=== PATIENT | male | born 1980 | race Caucasian/White ===

== ENCOUNTER 2016-09-24 05:57 | Day surgery (SDC) | payer MEDICARE ==
[2016-09-24] VITALS (11 sets, daily range): BP systolic 117–134; BP diastolic 60–85; PULSE 60–90; RESP 11–16; O2SAT 88–95
[~2016-09-24] VITALS: Ht 200.7 cm; Wt 129.0 kg
[~2016-09-24 05:57] MED LIST: KLO5T PO; LAMO100T PO; Lactated Ringer's 1,000 ML IV SCH; METO-274 PO; OMEP40CA36 PO; PARO40TA3 PO; PROP150T PO; RIVA20TA PO
[2016-09-24] MEDS ORDERED: Ondansetron 2 mg/mL 2 mL Inj ONE (05:58)
[2016-09-24] MEDS ORDERED: MetoCLOpramide 5 mg/mL 2 mL Inj ONE (05:58)
[2016-09-24] MEDS ORDERED: Protamine Sulfate 10 mg/mL 5 mL Inj ONE ×3 (05:58→16:01)
[2016-09-24] MEDS ORDERED: fentaNYL-PF 50 mCg/mL 2 mL Inj ONE ×2 (05:58→15:16)
[2016-09-24] MEDS ORDERED: Neostigmine 1 mg/mL 10 mL Inj ONE (05:58)
[2016-09-24] MEDS ORDERED: Propofol 10,000 mCg/mL 20 mL Inj ONE (05:58)
[2016-09-24] MEDS ORDERED: Rocuronium 10 mg/mL 5 mL Inj ONE (05:58)
[2016-09-24] MEDS ORDERED: Dexamethasone 4 mg/mL Inj ONE (05:58)
[2016-09-24] MEDS ORDERED: Vasopressin 20 Unit/mL Inj ONE (05:58)
[2016-09-24] MEDS ORDERED: Phenylephrine/NS 100 mCg/mL 10 mL Syringe IVPUSH ONE (05:58)
[2016-09-24] MEDS ORDERED: EPHEDrine/NS 5 mg/mL 5 mL Syringe ONE (05:58)
[2016-09-24] MEDS ORDERED: Succinylcholine Chloride 20 mg/mL 5 mL Inj ONE (05:58)
[2016-09-24] MEDS ORDERED: Heparin 1,000 Unit/mL 10 mL Inj ONE ×4 (10:44→15:17)
[2016-09-24] MEDS ORDERED: 0.9% Sodium Chloride 3,000 ML ONE (10:44)
[2016-09-24] MEDS ORDERED: 0.9% Sodium Chloride 1,500 ML ONE (10:44)
[2016-09-24] MEDS ORDERED: Heparin 25,000 Unit/500 mL 0.45% NS Premix IV ONE (10:45)
[2016-09-24 11:02] LABS: BASOPHILS % (AUTO) 0.6 % (0-3); EOSINOPHILS % (AUTO) 2.7 % (0-5); MONOCYTES % (AUTO) 9.3 % (4-12); Mean Corpuscular Hemoglobin 29.3 pg (27.0-35.0); Mean Corpuscular Volume 87.5 fL (81-100); NEUTROPHILS % (AUTO) 64.6 % (40-74); Platelet Count 311 bil/L (150-400)
[2016-09-24] MEDS ORDERED: WARF5TAB7 PO (11:06)
[2016-09-24 11:14] LABS: INR 1.37 ratio
--- NOTE | 2016-09-24 11:43 | PCM.HPANE ---
Patient Data Date of Service: Sep 24, 2016 Surgeon Admitting Provider: Attending Provider:Addi James MD Primary Care Physician:Other,Physician Other Provider:Agusto Andres Anesthesia Reason for Visit Paroxysmal Afib Ht/WT & BMI Height (Feet): 6 Height (Inches): 7.00 Weight (Kilograms): 129.000 Body Mass Index 31.93 Allergies Coded Allergies: No Known Allergies (Unverified , 03/02/16) Past Anesthesia History Anesthesia History: Denies:: Anesthesia Reactions Diabetes History Hx Diabetes?: No MRSA MRSA: No Medications Home Meds Incl Beta Kannan: Yes Date Beta Kannan Taken: Sep 24, 2016 Previous Beta Kannan Dose >24: Previous Dose <24 Hours Reported Medications Warfarin Sodium 5 Mg Tablet5 Mg PO Castaneda,Mo,,Th,Sa 30 Days Ref 0 7.5mg ,Fr 09/24/16 Propafenone 150 Mg Glfnwq013 Mg PO Q12H 09/23/16 Omeprazole 40 Mg Capsule.dr40 Mg PO DAILY Ref 0 09/23/16 Metoprolol Succinate ER 100 Mg Tab.er.[id number] Mg PO DAILY Ref 0 09/23/16 Lamotrigine (Lamictal)100 Mg Jwhbnf443 Mg PO DAILY #30 TABLET Ref 0 09/23/16 Clonazepam 0.5 Mg Tablet0.5 Mg PO DAILY PRN For Anxiety Ref 0 09/23/16 Paroxetine 40 Mg Fowqwf81 Mg PO DAILY 02/22/16 Discontinued Reported Medications Rivaroxaban (Xarelto)20 Mg Gajsfz29 Mg PO DAILY 02/22/16 Aspirin 81 Mg Kfegcf61 Mg PO DAILY 02/22/16 Omeprazole 20 Mg Capsule.dr20 Mg PO DAILY PRN For Dyspepsia or Heartburn 02/22/16 Metoprolol Tartrate 25 Mg Khtfwu17 Mg PO DAILY 02/22/16 History History of ENT Problems?: No HEENT History: Denies:: TMJ Hx of Heart Problems?: Yes Cardiovascular History: Positive for:: Chest Pain (none currently) Irregular Heartbeat (A.fib, a.flutter, ablation) Denies:: Cardiac Surgery Congestive Heart Failure Edema Heart Murmur Pacemaker Thrombophlebitis Hx of Respiratory Problem?: Yes Respiratory History: Positive for:: Dyspnea (R/T Afib/flutter) Denies:: Asthma COPD Chest Surgery Emphysema Hemoptysis Pneumonia Tuberculosis Hx Neurologic Problems?: No Neurological History: Denies:: CVA Multiple Sclerosis Peripheral Neuropathy Seizures Hx of GI Problems?: Yes Gastrointestinal History: Positive for:: Gastroesphageal Reflux Heartburn Denies:: Diverticulitis Gastrointestinal Bleeding Hepatitis Hiatal Hernia Rectal Bleeding Hx of Problems?: No Male Hx: Denies:: Prostate Problems Scrotal Mass Testicular Surgery Hx Musculoskeletal Problems?: No Musculoskeletal History: Denies:: Musculoskeletal Trauma Rheumatoid Arthritis Hx of Psycho/Social Problems?: Yes Psycho Social History: Positive for:: Anxiety Hx Depression Denies:: Bipolar Disorder Suicide Attempt Hx Any Other Health Problems?: Yes Other History: Positive for:: Cancer (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 Denies:: Blood Transfusions Hx Diabetes: No Hx Alcohol Use: Yes (1/5th of Whiskey twice a week. Last drink was 2 months ago.)Hx Substance Use: Yes (MARIJUANA daily) Smoking Status: Current Every Day Smoker Have You Smoked inLast 12 mo: Yes Stop/Bang Treated for Sleep Apnea?: Yes Do You Have a CPAP Machine?: No MIRYAM Risk Assessment: High Risk, =/>3 Yes MIRYAM Category 4 OutPt Procedure: Yes Risk Assessment Category Category 1A: Patient has history of documented sleep apnea, and HAS NOT received any narcotic, sedative or anesthesia administration during this stay. Category 1B: Patient has history of documented sleep apnea, and HAS received any narcotic , sedative or anesthesia administration during this stay Category 2: Patient has SUSPECTED Obstructive Sleep Apnea, and HAS received any narcotic , sedative or anesthesia administration during this stay. Category 3: Patient has SUSPECTED Obstructive Sleep Apnea and HAS NOT received narcotic, sedative or anesthesia administration during this stay. Category 4: Outpatient in Procedural Areas with known sleep apnea or who screen positive for High Risk via the STOP/BANG questionnaire. Exam Exam Vital Signs Vital Signs Date Time Temp Pulse Resp B/P Pulse Ox O2 Delivery O2 Flow Rate FiO2 09/24/16 10:55 36.7 60 16 132/76 95 Room Air General Appearance: Alert, Oriented X3, Cooperative, No Acute Distress HEENT/AIRWAY: MP 1, Neck Movement (FROM), Mouth Opening (3 FB), Other (TMD > 3 FB) Lungs: Coarse (in bases) Heart: Exam Unremarkable, Regular Rate/Rhythm, No Murmurs/Rubs/Gallops Meds/Labs/Diagnostics Labs Test 09/24/16 10:40 White Blood Count 9.5th/mm3 (3.8-10.1) Red Blood Count 5.02mil/mm3 (4.40-5.80) Hemoglobin 14.7g/dL (13.8-17.2) Hematocrit 43.9% (41.0-50.0) Mean Corpuscular Volume 87.5fL (81-100) Mean Corpuscular Hemoglobin 29.3pg (27.0-35.0) Mean Corpuscular Hemoglobin Concent 33.5% (32.0-37.0) Red Cell Distribution Width 14.4% (12.3-15.4) Platelet Count 311bil/L (150-400) Neutrophils (%) (Auto) 64.6% (40-74) Lymphocytes (%) (Auto) 22.6% (14-46) Monocytes (%) (Auto) 9.3% (4-12) Eosinophils (%) (Auto) 2.7% (0-5) Basophils (%) (Auto) 0.6% (0-3) Prothrombin Time 14.7sec (8.1-12.5) Prothromb Time International Ratio 1.37ratio Sodium Level 138mEq/L (134-144) Potassium Level 4.5mEq/L (3.5-5.2) Chloride Level 102mEq/L (97-108) Carbon Dioxide Level 23mmol/L (18-29) Blood Urea Nitrogen 21mg/dL (6-20) Creatinine 1.11mg/dL (0.76-1.27) Estimat Glomerular Filtration Rate 79mL/min (>59) Glucose Level 108mg/dL (60-99) Calcium Level 8.5mg/dL (8.5-10.1) Plan Impression Patient chart reviewed, patient interviewed and anesthestic plan with risks, benefits, and alternatives discussed, and informed consent obtained. NPO Status: appropriate ASA Physical Status: ASA2 Mod Systemic Disease Anesthetic Support Modalities: Arterial Line Anesthetic Plan: GA Bene/Risks/Altern/Consents: Yes HP Complete Prior to Induction: Yes Silver Hernandez MD Sep 24, 2016 11:43
[2016-09-24] MEDS ORDERED: 0.9% Sodium Chloride 1,000 ML ONE (12:16)
[2016-09-24] MEDS ORDERED: 0.9% Sodium Chloride 500 ML ONE (15:41)
[2016-09-24] MEDS ORDERED: Ondansetron 2 mg/mL 2 mL Inj IVPUSH PRN ×2 (16:10→17:10)
[2016-09-24] MEDS ORDERED: HYDROcodone-APAP 5-325 mg Tablet PO PRN (16:10)
--- NOTE | 2016-09-24 17:08 | PCM.ANEP1 ---
Post Anesthesia Phase 1 PACU Phase 1 Assessment Date of Service: Sep 24, 2016 Vital Signs Vital Signs Date Time Temp Pulse Resp B/P Pulse Ox O2 Delivery O2 Flow Rate FiO2 09/24/16 16:45 90 16 121/63 92 Nasal Cannula 2.00 09/24/16 16:40 90 119/60 88 Room Air 09/24/16 10:55 36.7 60 16 132/76 95 Room Air Anesthetic Administered: GA Level of Alertness: Awake, talking CHEATHAM's with Equal Strength: Yes Pain: No Nausea or Vomiting: No Oxygen Delivery: Nasal Cannula Lungs: Coarse (in bases) Dermatome Level: Full Sensation Silver Hernandez MD Sep 24, 2016 17:08
[2016-09-24] MEDS ORDERED: Lactated Ringer's 1,000 ML IV SCH (17:09)
[2016-09-24] MEDS ORDERED: Lactated Ringer's 500 ML IV PRN (17:09)
--- NOTE | 2016-09-24 17:09 | PCM.ANEP2 ---
Post Anesthesia Evaluation ASA/CMS Post Anesthesia Date of Service: Sep 24, 2016 VS in Patient's Normal Range?: Yes Resp Stable; Airway Patent?: Yes CV Function & Hydration Stable: Yes Mental Status Recovered?: Yes Pain control Satisfactory?: Yes N/V Control Satisfactory?: Yes Silver Hernandez MD Sep 24, 2016 17:09
[2016-09-24] MEDS ORDERED: EPHEDrine Sulfate 50 mg/mL Inj IVPUSH PRN (17:10)
[2016-09-24] MEDS ORDERED: fentaNYL-PF 50 mCg/mL 2 mL Inj IVPUSH PRN (17:10)
[2016-09-24] MEDS ORDERED: Phenylephrine 10,000 mCg/mL Inj IVPUSH PRN (17:10)
[2016-09-24] MEDS ORDERED: EPHEDrine Sulfate 50 mg/mL Inj IM PRN (17:10)
[2016-09-24] MEDS ORDERED: Labetalol 5 mg/mL 4 mL Inj IV PRN (17:10)
[2016-09-24] MEDS ORDERED: Atropine 0.4 mg/mL Inj IVPUSH PRN (17:10)
[2016-09-24] MEDS ORDERED: HYDROmorphone 1 mg/mL Inj IVPUSH PRN (17:10)
[2016-09-24] MEDS ORDERED: Albuterol 2.5 mg/3 mL Inhalation Solution NEB PRN (17:10)
[2016-09-24] MEDS ORDERED: hydrALAZINE 20 mg/mL Inj IVPUSH PRN (17:10)
--- NOTE | 2016-09-24 17:15 | PROCED ---
[address] [address] PROCEDURE NOTE PATIENT: JHONNY OLGUIN : 1980 MR#: [id number] ADMIT: 09/24/2016 JOB ID: [id number] DATE OF SERVICE: 09/24/2016 PREOPERATIVE DIAGNOSIS(ES): Paroxysmal, drug refractory and symptomatic atrial fibrillation. POSTOPERATIVE DIAGNOSIS(ES): Paroxysmal, drug refractory and symptomatic atrial fibrillation. PROCEDURES PERFORMED: 1. Comprehensive electrophysiology study. 2. Three-dimensional electroanatomic mapping using the CARTO 3 system. 3. Intracardiac echocardiography. 4. Atrial fibrillation ablation with pulmonary vein isolation. 5. Transseptal puncture x2. 6. Barium esophagram. 7. Fluoroscopy. SURGEON: Addi James MD, electrophysiology. AUTOMOTIVE ELECTRICIAN HELPER: Marlo Hadley and Campos Donato PA-C. ANESTHESIA: General endotracheal anesthesia was undertaken for this case. INDICATION: The patient is a pleasant, 36-year-old man with a structurally normal heart and . Symptomatic drug refractory atrial fibrillation. He has undergone atrial flutter ablation in the past. After discussion of the risks and benefits of catheter-based mapping ablation for his atrial fibrillation, he opted to proceed. PROCEDURAL DESCRIPTION: The patient was taken to the EP laboratory in a fasting, nonsedated state, where he was prepped and draped in the usual sterile fashion. He underwent a preprocedural transesophageal echocardiogram by Dr. Bermeo. confirming lack of intracardiac thrombus. Please see separate dictated report for the details of that procedure. The bilateral groins were then infiltrated with 1% lidocaine. Then, using modified Seldinger technique, two 8-Fijian sheaths were inserted into the right femoral vein and a 7 and a 10.5-Fijian sheath were inserted into the left femoral vein. Under fluoroscopic guidance, a deflectable decapolar catheter was advanced in the coronary sinus with the most proximal bipolar at the os of the sinus. An intracardiac echocardiogram probe was advanced to the RV outflow tract and used to visualize the pericardial space. No effusion was noted. The ICE probe was pulled back into the right atrium. This was used to visualize the interatrial septum and assist with transseptal puncture. Two transseptal punctures were performed in an identical fashion using the short 8-Fijian sheath which was exchanged over a long wire for a Verteego (Emerald Vision) sheath dilator and Darleen Brockencarolugh needle. The entire system was used to engage the interatrial septum then under pressure and fluoroscopic image guidance the septum was traversed twice to deploy the two Clark sheaths into the left atrium. The patient was heparinized for a goal ACT of 50 to 400 seconds for the entire time we were in the left atrium following the 1st and preceding the 2nd transseptal puncture. A resurvey of the pericardial space showed no evidence of effusion. Through the two Clark sheaths an F curve Smart Touch irrigated ablation catheter was passed as was a 20 pole Sentry catheter. A three-dimensional electroanatomic map of the left atrium and four pulmonary veins was created using the Mondokio 3 system. A barium esophagram was performed delineating the course of the esophagus closest to the posterior aspect of the left upper pulmonary vein. Circumferential ablation lesions were then placed around the pulmonary vein ostia starting with the left upper, left lower, right upper and right lower pulmonary veins, achieving entrance and exit block in all four pulmonary veins. Once this was completed, we left the left atrium, turned off the heparin, and reversed the heparin with protamine. During the course of the study, we did complete a comprehensive electrophysiology study with right atrial pacing, recording, right ventricular and His bundle recording, left atrial pacing the coronary sinus catheter. All catheters and sheaths were removed and manual pressure was held for hemostasis. The patient was transferred to the [facility] for monitoring and bedrest. COMPLICATIONS: None. ESTIMATED BLOOD LOSS: 10-20 cc. FINDINGS: 1. Baseline rhythm was sinus with an RR interval of 703 msec, ID 190 msec, QRS 96 msec, QT 386 msec. 2. Intracardiac intervals: AH interval 84 msec, HV 58 msec. 3. Retrograde conduction: VA dissociation noted at [address] 4. Pulmonary vein isolation, as described above, with entrance and exit block in all four pulmonary veins. IMPRESSION: Successful pulmonary vein isolation procedure for paroxysmal drug refractory atrial fibrillation. PLAN: 1. Bed rest x4 hours. 2. Resume warfarin and since he slept today, give him 10 mg tonight. 3. Continue propafenone and metoprolol. 4. Lovenox 100 mg subcutaneously q.12 h. starting after 4 hours of bedrest until therapeutic with INR. 5. INR in the morning. 6. Follow up with Campos Donato in three to four weeks and with me in three months. ATTENDING STATEMENT: Addi James MD, electrophysiology attending, was present for and supervised/performed all aspects of this procedure.
--- NOTE | 2016-09-24 18:24 | DRSVH ---
Formerly [facility] [address] [place] [address] Echocardiogram Report Name: JHONNY OLGUIN LStudy Date : 09/24/2016 Hospital Exam Location: [facility] Gender: Male : 1980 Age: 36 yrs Reason For Study: PRE-PROCEDURE Ordering Physician: Addi James Performed By: Humberto Lowery Interpretation Summary Limited JULY to evaluated for ALHAJI thrombus prior to afib ablation. There is no evidence of thrombus in ALHAJI Mitral valve leaflets are normal; trace regurgitation. Procedure: The patient was brought to the cardiac catheterization lab in a fasting state. An intravenous line was placed. A topical anesthetic agent was used for oropharangeal anesthesia. A bite block was inserted. Sedation was managed by anesthesiologist; see anesthesiology notes for details. The transesophageal probe was passed without difficulty. The patient was in normal sinus rhythm during the exam. There were no complications. Atria: No thrombus is detected in the left atrial appendage. No left atrial mass or thrombus visualized. Reading Physician:06:23 PM
--- NOTE | 2016-09-24 19:02 | NUR ---
Pt transferred to [facility], VSS, pt in NSR. Bilateral groin sites CDI with no bleeding/hematoma noted. Report and pt handoff given to Joseph HYLTON.
[2016-09-24] MEDS: 0.9% Sodium Chloride 1,000 ML IV SCH ×2 (19:34→19:41)
[2016-09-24] MEDS: PROPAFENONE 150 MG PO SCH (21:20)
[2016-09-25 00:16] VITALS: BP 112/58; PULSE 83; RESP 17; O2SAT 94
[2016-09-25 03:31] VITALS: PULSE 85
[2016-09-25] MEDS: 0.9% Sodium Chloride 1,000 ML IV SCH (03:53)
[2016-09-25 05:16] VITALS: BP 134/84; PULSE 87; RESP 16; O2SAT 92
--- NOTE | 2016-09-25 06:25 | NUR ---
Groin Sites Pt had both R and L groin sites that are soft, only mildly tender and no hematoma noted. Pt off bedrest @ 2100 and tolerated well. No s/sx of bleeding noted. Pt tele SR 80's to 90's. VSS
[2016-09-25] MEDS ORDERED: Pantoprazole 40 mg ER24 Tablet PO SCH (06:30)
[2016-09-25 07:41] VITALS: PULSE 86
[2016-09-25 08:22] VITALS: BP 127/75; PULSE 84; RESP 18; O2SAT 92
[2016-09-25] MEDS ORDERED: lamoTRIgine 100 mg Tablet PO SCH (08:30)
[2016-09-25] MEDS ORDERED: MeTOProlol XL 50 mg ER24 Tablet PO SCH (08:30)
[2016-09-25] MEDS ORDERED: PARoxetine 20 mg Tablet PO SCH (08:30)
[2016-09-25 08:41] VITALS: PULSE 84
--- NOTE | 2016-09-25 09:03 | PCM.DIMED ---
Discharge Instructions Date of Service Sep 25, 2016 Dates of Hospitalization Discharge Diagnosis Discharge Diagnosis Persistent Atrial fibrillation Diet Heart Healthy Activity Other (To prevent bleeding, do not lift or push more than 10 lbs for 1 week. To prevent infection, do not sit in a hot tub, bath tub or pool for 1 week.) Call your provider Fever or Chills, Bleeding, Excessive diarrhea, Weakness (unilateral) Patient Instructions Mid-level Provider (F9): Campos Donato PA-C Follow-up with Mid-level in: 4 weeks Campos Donato PA-C Sep 25, 2016 09:03
[2016-09-25] MEDS ORDERED: PANT40TA3 PO (09:05)
[2016-09-25 09:56] LABS: INR 1.87 ratio
[2016-09-25] MEDS ORDERED: LOV100 SUBQ (11:23)
[2016-09-25] MEDS: PROPAFENONE 150 MG PO SCH (11:38)
--- NOTE | 2016-09-25 11:56 | NUR ---
Discharge note Patient a/o x 3, CHEATHAM, up indep in room, steady gait. Patient denies pain, nausea or sob. Taking diet well. VSS, tele SR 80's. Bilat groin sites soft, no hematoma or bruising. Bilat pedal pulses palpable. Patient given teaching on subcut injections. Patient able to give self injection this a.m. without complication. IV SL x 2 and tele discont. Patient given discharge instructions, medication reconciliation, info on procedure and post op care. Prescriptions sent to pharmacy via computer per Campos Sanabria All questions answered. Patient amb to main entrance with all belongings to wait for transport home.
--- NOTE | 2016-11-13 16:28 | DIS ---
[address] [address] DISCHARGE SUMMARY PATIENT: JHONNY OLGUIN : 1980 MR#: [id number] ADMIT: 09/24/2016 JOB ID: [id number] DIS: 09/25/2016 REASON FOR ADMISSION: Atrial fibrillation ablation procedure. CHIEF COMPLAINT: Lightheadedness and near syncope. BRIEF HISTORY: The patient is a pleasant 36-year-old man with a structurally normal heart who underwent an atrial flutter ablation procedure last year but returned this year with recurrent atrial fibrillation documented by ECG. He was started on propafenone with his beta-shalom and anticoagulation, but he reports continued daily episodes of palpitations which coincide with atrial fibrillation and he is symptomatic with lightheadedness and near syncope. An ablation procedure was discussed with him and he wished to move forward with that. COURSE IN HOSPITAL: The patient was admitted through the [facility] and taken to the laborer cook house, where he was first placed under general anesthesia by the anesthesiologist. He then had a JULY performed which showed no evidence of left atrial thrombus. The atrial fibrillation ablation procedure was then undertaken and completed without incident. After the femoral sheaths were removed, he was awakened from the anesthesia and hemostasis was obtained. The patient was transferred back to the [facility] for continued recovery from sedation and then taken up to the telemetry unit for overnight monitoring. He did well overnight, the Mantilla catheter was removed and he was able to void his bladder spontaneously. He had no bleeding and no hematoma formation at the puncture sites. He was ambulatory without difficulty and without bleeding. In the morning he had no chest pain, no lightheadedness and felt well for discharge home. His ECG showed sinus rhythm. DISPOSITION: The patient was discharged home in good condition with a follow up appointment at the [facility] Cardiology office in one month. He was asked to not sit in a hot tub, bathtub, or pool for one week to prevent infection. He was asked not to lift, push or pull more than 10 pounds for one week to prevent bleeding. He will continue to follow a heart healthy diet and take medications as prescribed. When he arrived yesterday, his INR was subtherapeutic at 1.37. He was given 10 mg of warfarin overnight and on the discharge day his INR was 1.87. He was given enoxaparin 100 mg q.12 hours to cover for anticoagulation. DISCHARGE MEDICATIONS: 1. Enoxaparin 100 mg q.12 hours to be used until his INR is greater than or equal to 2.0. 2. Clonazepam 0.5 mg p.r.n. anxiety. 3. Lamotrigine 100 mg daily. 4. Metoprolol succinate 100 mg daily. 5. Omeprazole 40 mg daily. 6. Paroxetine 40 mg daily. 7. Propafenone 150 mg q.12 hours. 8. Warfarin 5 mg daily or as directed by his anticoagulation clinic. FINAL DIAGNOSES: 1. Paroxysmal symptomatic atrial fibrillation. 2. Prior history of atrial flutter, status post ablation.
== END 2016-09-25 11:53 | disposition home or self-care (01) ==
LOC: SOUO 05:57 → PCC 18:35 → SOUO 09-25 11:53
PROVIDERS: ATTEND Internal Medicine Cardiovascular Disease
DX: I48.1 Persistent atrial fibrillation (principal); I48.0 Paroxysmal atrial fibrillation; Z98.890 Other specified postprocedural states; Z87.891 Personal history of nicotine dependence; Z79.01 Long term (current) use of anticoagulants
CPT/HCPCS: 36415; 80048; 85025; 85610; 93005; 93613; 93656; 93662; C1730; C1732; C1759; C1769; C1894; C8925; J0330; J1100; J1644; J1650; J2370; J2405; J2710; J2720; J2765; J3010; J7030; J7040